=== PATIENT | female | born 1955 | race Caucasian/White ===

== ENCOUNTER 2018-02-16 10:16 | Outpatient (CLI) | payer OTHER | END 2018-02-16 10:17 | disposition home or self-care (01) | LOC: MERGE 10:16 → BICMAMMO 10:16 | PROVIDERS: ATTEND Family Medicine | DX: Z12.31 Encounter for screening mammogram for malignant neoplasm of breast (principal); R92.1 Mammographic calcification found on diagnostic imaging of breast; Z80.3 Family history of malignant neoplasm of breast | CPT/HCPCS: 77063; 77067 ==

== ENCOUNTER 2018-02-16 11:02 | Outpatient (CLI) | payer OTHER ==
--- NOTE | 2018-02-16 13:00 | BD ---
Exam: DEXA Bone Density 02/16/18 HISTORY: Postmenopausal screening for osteoporosis FINDINGS: Lumbar Spine: BMD (g/cm2) T-Score Z-Score L1 0.988 0.0 1.4 L2 1.158 1.2 2.8 L3 1.142 0.5 2.2 L4 1.092 0.3 2.0 L1-L4 1.095 0.4 2.1 Femoral Neck: 0.843 -0.1 1.4 Total Femur: 1.097 1.3 2.4 There has been interval reduction of 2.6% BMD of the lumbar spine and improvement of 8.8% of BMD of t he proximal femur since 02/13/16. Impression: No evidence of osteopenia/osteoporosis. Normal BMD. POS: MARIELLE
== END 2018-02-16 11:03 | disposition home or self-care (01) ==
LOC: BICMAMMO 11:02
PROVIDERS: ATTEND Family Medicine
DX: Z13.820 Encounter for screening for osteoporosis (principal); Z78.0 Asymptomatic menopausal state
CPT/HCPCS: 77080

== ENCOUNTER 2019-12-23 08:31 | Outpatient (CLI) | payer MEDICARE ==
--- NOTE | 2019-12-23 09:06 | MMO ---
Bilateral MAMMO Bilat Screen [facility]. CLINICAL HISTORY: Patient is 64 years old and is seen for screening. The patient has the following family history of breast cancer: sister, at age 58. The patient has no personal history of cancer. VIEWS: The views performed were: bilateral craniocaudal with tomosynthesis and bilateral mediolateral oblique with tomosynthesis. FILMS COMPARED: The present examination has been compared to a prior imaging study performed at [facility] on 02/16/2018. This study has been interpreted with the assistance of computer-aided detection. MAMMOGRAM FINDINGS: There are scattered fibroglandular densities. There are benign appearing calcifications seen in the right breast. There are no suspicious masses, suspicious calcifications, or new areas of architectural distortion. IMPRESSION: THERE IS NO MAMMOGRAPHIC EVIDENCE OF MALIGNANCY. A ROUTINE FOLLOW-UP MAMMOGRAM IN 1 YEAR IS RECOMMENDED. THE RESULTS OF THIS EXAM WERE SENT TO THE PATIENT. ACR BI-RADS Category 2 - Benign finding MAMMOGRAPHY NOTE: 1. A negative mammogram report should not delay a biopsy if a dominant of clinically suspicious mass is present. 2. Approximately 10% to 15% of breast cancers are not detected by mammography. 3. Adenosis and dense breasts may obscure an underlying neoplasm. Reported by: PATTI HERBERT MD Electonically Signed: [id number]
== END 2019-12-23 08:32 | disposition home or self-care (01) ==
LOC: BICMAMMO 08:31
PROVIDERS: ATTEND Family Medicine
DX: Z12.31 Encounter for screening mammogram for malignant neoplasm of breast (principal); Z80.3 Family history of malignant neoplasm of breast
CPT/HCPCS: 77063; 77067